=== PATIENT | female | born 1985 | race Caucasian/White ===

== ENCOUNTER 2017-10-21 07:01 | Day surgery (SDC) | payer OTHER ==
[~2017-10-21 07:01] MED LIST: ATROPINE 1 MG/10 ML SYRINGE IV; DIPHENHYDRAMINE 50 MG INJ IV; EPHEDrine SULFATE 50 MG/5 ML SYG IV; FENTAnyl 50 MCG/ML VIAL IV; HYDROmorphONE (0.2 MG/ML) 10ML SYG IV; LABETALOL HCL 20MG INJ IV; MEPERIDINE 25 MG INJ IV; MIDAZOLAM 1 MG/ML 2 ML INJ IV; ONDANSETRON 4 MG INJ IV; OXYCODONE/ACETAMINOPHEN (5/325) TAB PO; hydrALAzine 20 MG INJ IV; morphine (1 MG/ML) 10ML SYRINGE IV
[2017-10-21] MEDS ORDERED: NEOSTIGMINE 3 MG/3 ML SYRINGE (09:43)
[2017-10-21] MEDS ORDERED: LIDOCAINE 2% (SDV) 5 ML INJ (09:43)
[2017-10-21] MEDS ORDERED: GLYCOPYRROLATE 0.4 MG INJ (09:43)
[2017-10-21] MEDS ORDERED: FENTAnyl 50 MCG/ML VIAL (09:43)
[2017-10-21] MEDS ORDERED: PROPOFOL 20 ML (09:43)
[2017-10-21] MEDS ORDERED: ROCURONIUM 50 MG INJ (09:43)
[2017-10-21] MEDS ORDERED: MIDAZOLAM 1 MG/ML 2 ML INJ (09:44)
[2017-10-21] MEDS ORDERED: CEFAZOLIN 1 GM INJ (09:45)
[2017-10-21] MEDS ORDERED: SUCCINYLCHOLINE CHLORIDE 100 MG/5 ML SYG IV (09:45)
[2017-10-21] MEDS ORDERED: ONDANSETRON 4 MG INJ (09:47)
[2017-10-21] MEDS ORDERED: DEXAMETHASONE 4 MG/ML 1 ML INJ (09:47)
[2017-10-21] MEDS ORDERED: KETOROLAC 30 MG INJ (09:48)
[2017-10-21] MEDS ORDERED: DEXTROSE 5%-LR 1,000 ML IV (10:00)
[2017-10-21] MEDS ORDERED: CEFAZOLIN 2 GM/50 ML (PMX) 50 ML IVPB (10:00)
[2017-10-21] MEDS: FENTAnyl 50 MCG/ML VIAL IV ×2 (11:44→11:50)
[2017-10-21] MEDS: KETOROLAC 30 MG INJ IV (11:45)
[2017-10-21] MEDS: morphine (1 MG/ML) 10ML SYRINGE IV (11:50)
== END 2017-10-21 13:15 | disposition home or self-care (01) ==
LOC: SDS 07:01
DX: N92.1 Excessive and frequent menstruation with irregular cycle (principal); D25.9 Leiomyoma of uterus, unspecified
CPT/HCPCS: 58563; 88305

== ENCOUNTER 2018-02-22 10:49 | Emergency (ER) | payer OTHER ==
[2018-02-22 11:43] LABS: ADD MAN DIFF? NO
[2018-02-22 11:45] LABS: BASOPHILS % 0.3 % (0.0-2.0); EOSINOPHILS # 0.1 10^3/ul (0.0-0.5); EOSINOPHILS % 0.8 % (0.0-7.0); HEMATOCRIT 40.5 % (37.0-47.0); HEMOGLOBIN 13.6 g/dl (12.0-16.0); LYMPHOCYTES # 1.7 10^3/ul (0.8-2.9); LYMPHOCYTES % 26.1 % (15.0-51.0); MEAN CORPUSCULAR HEMOGLOBIN 28.7 pg (29.0-33.0); MEAN CORPUSCULAR HGB CONC 33.6 g/dl (32.0-37.0); MEAN CORPUSCULAR VOLUME 85.4 fl (82.0-101.0); MONOCYTE # 0.3 10^3/ul (0.3-0.9); MONOCYTES % 4.7 % (0.0-11.0); NEUTROPHIL # 4.3 10^3/ul (1.6-7.5); NEUTROPHILS % 67.9 % (39.0-77.0); PLATELET COUNT 267 10^3/UL (140-415); RED BLOOD COUNT 4.74 10^6/ul (4.20-5.40); RED CELL DISTRIBUTION WIDTH 13.2 % (11.5-14.5)
[2018-02-22 11:45] LABS: WHITE BLOOD COUNT 6.4 10^3/ul (4.8-10.8)
[2018-02-22 11:49] LABS: ADD UMIC YES; UR ASCORBIC ACID NEGATIVE (NEGATIVE); UR BILIRUBIN (Dip) NEGATIVE (NEGATIVE); UR BLOOD (Dip) 2+ mg/dL (NEGATIVE); UR CLARITY SLIGHTLY CLOUDY (CLEAR); UR COLOR YELLOW (YELLOW); UR GLUCOSE (Dip) NEGATIVE (NEGATIVE); UR KETONES (Dip) NEGATIVE (NEGATIVE); UR LEUKOCYTE ESTERASE (Dip) NEGATIVE Leu/ul (NEGATIVE); UR NITRITE (Dip) NEGATIVE (NEGATIVE); UR RBC 2 /HPF (0-5); UR SQUAMOUS EPITHELIAL CELL FEW /HPF (FEW); UR TOTAL PROTEIN (Dip) NEGATIVE (NEGATIVE); UR UROBILINOGEN (Dip) NEGATIVE (NEGATIVE); UR WBC 1 /HPF (0-5)
[2018-02-22 12:03] LABS: ALANINE AMINOTRANSFERASE 16 IU/L (13-69); ALBUMIN 4.9 g/dl (3.3-4.9); ALBUMIN/GLOBULIN RATIO 1.28; ALKALINE PHOSPHATASE 44 IU/L (42-121); ANION GAP 14 (8-16); ASPARTATE AMINO TRANSFERASE 15 IU/L (15-46); BILIRUBIN,INDIRECT 0.3 mg/dl (0-1.1); BILIRUBIN,TOTAL 0.3 mg/dl (0.2-1.3); BLOOD UREA NITROGEN 14 mg/dl (7-20); CALCIUM 9.4 mg/dl (8.4-10.2); CARBON DIOXIDE 25 mmol/L (21-31); CHLORIDE 104 mmol/L (97-110); CREATININE 0.75 mg/dl (0.44-1.00); GLUCOSE 90 mg/dl (70-220); POTASSIUM 4.4 mmol/L (3.5-5.1); SODIUM 139 mmol/L (135-144); TOTAL PROTEIN 8.7 g/dl (6.1-8.1)
== END 2018-02-22 13:45 | disposition home or self-care (01) ==
LOC: FTE 10:49
DX: R51 Headache (principal)
CPT/HCPCS: 36415; 70450; 72125; 80053; 81001; 81025; 85025; 99285-25